=== PATIENT | female | born 1960 | race Caucasian/White ===

== ENCOUNTER → 2019-02-15 | Outpatient (CLI) | payer BC ==
[~2019-02-15] MED LIST: ALPR0.5T PO; ASPI-983 PO; BISM262O27 PO; CITA10TA12 PO; CITA20TA12 PO; MAG355OR16 PO; OXYC1TAB87 PO
--- NOTE | 2019-02-15 19:09 | Diagnostic Imaging Report ---
INDICATION: Routine screening. No prior mammograms are available for comparison. 2-D and 3-D bilateral screening mammography was performed. The current study was also evaluated with a Computer Aided Detection (CAD) system. 3-D tomosynthesis was also performed and reviewed. FINDINGS: Scattered fibroglandular densities are identified bilaterally. No dominant mass or malignant-appearing microcalcifications are seen. Axillae are unremarkable. IMPRESSION: No mammographic features suspicious for malignancy are identified. ACR BI-RADS Category 1: Negative. Result letter will be mailed to the patient. Note: At least 10% of breast cancer is not imaged by mammography. Dictated by: Dictated on workstation # [id number]
== END ==
LOC: RAD 10:49
PROVIDERS: ATTEND Internal Medicine
DX: Z12.31 Encounter for screening mammogram for malignant neoplasm of breast (principal)
CPT/HCPCS: 77067

== ENCOUNTER 2023-04-28 05:52 | Outpatient (CLI) | payer OTHER ==
[~2023-04-28] VITALS: Ht 162.5 cm; Wt 73.9 kg
[~2023-04-28 05:52] MED LIST changes: +ASPI-1238 PO; -ASPI-983 PO
[2023-04-28] MEDS ORDERED: ALPR0.5T7 PO (13:38)
[2023-04-28] MEDS ORDERED: ATOR20TA66 PO (13:38)
[2023-04-28] MEDS ORDERED: CITA20TA9 PO (13:38)
== END 2023-04-28 13:41 | disposition home or self-care (01) ==
LOC: PREOP 05:52
PROVIDERS: ATTEND Surgery
DX: Z01.818 Encounter for other preprocedural examination (principal)